=== PATIENT | female | born 1945 ===

== ENCOUNTER 2016-11-29 14:05 | Emergency (ER) | payer MEDICARE, OTHER | END 2016-11-29 14:51 | disposition home or self-care (01) | LOC: ER 14:05 | DX: R60.0 Localized edema (principal); I10 Essential (primary) hypertension; Z85.118 Personal history of other malignant neoplasm of bronchus and lung | CPT/HCPCS: 71010; 80048; 83735; 83880; 84484; 85025; 85610; 85730; 93005; 99284 ==